=== PATIENT | female | born 1990 | race Caucasian/White ===

== ENCOUNTER 2020-11-05 10:34 | Emergency (ER) | payer BC ==
[~2020-11-05] VITALS: Ht 152.4 cm; Wt 60.8 kg
[2020-11-05 10:52] VITALS: BP 137/87; Ht 152.4 cm; Wt 60.8 kg
== END 2020-11-05 13:22 | disposition home or self-care (01) ==
LOC: ED 10:34
DX: S01.512A Laceration without foreign body of oral cavity, initial encounter (principal); S01.511A Laceration without foreign body of lip, initial encounter; R04.0 Epistaxis; Z88.0 Allergy status to penicillin; W18.09XA Striking against other object with subsequent fall, initial encounter; Y93.89 Activity, other specified; Y92.89 Other specified places as the place of occurrence of the external cause; Y99.8 Other external cause status
CPT/HCPCS: 82962; J2001; Q0162